=== PATIENT | female | born 1995 | race African-American/Black ===

== ENCOUNTER 2020-07-23 12:12 | Day surgery (SDC) | payer OTHER ==
[~2020-07-23 12:12] MED LIST: Acetaminophen 500 MG TAB PO PRN; Iron Sucrose Complex 500 MG in Sodium Chloride 0.9% 250 ML 250 ML IVPB SCH
== END 2020-07-23 14:54 | disposition home or self-care (01) ==
LOC: ONC/OP 12:12
PROVIDERS: ATTEND Family Medicine
DX: D50.9 Iron deficiency anemia, unspecified (principal)
CPT/HCPCS: 96365; J1756; J7050